=== PATIENT | female | born 1990 | race African-American/Black ===

== ENCOUNTER 2021-07-12 06:21 | Inpatient (IN) ==
[2021-07-12] MEDS ORDERED: MEPERIDINE 50 MG/1 ML VIAL IM PRN ×2 (07:48→08:00)
[2021-07-12] MEDS ORDERED: MEPERIDINE 25 MG/1 ML VIAL IM PRN (07:48)
[2021-07-12] MEDS ORDERED: ACETAMINOPHEN 325 MG TABLET PO PRN (07:48)
[2021-07-12] MEDS ORDERED: LACTATED RINGERS 250 ML IV ONE (07:48)
[2021-07-12 08:12] LABS: Basophils % 0.1 % (0.0-0.8); Eosinophils % 0.5 % (0.00-10.9); Hematocrit 36.9 VOL% (35.7-47.0); Hemoglobin 12.1 GM/DL (12.0-16.0); Immature Granulocytes % 0.6 %; Immature Granulocytes Absolute 0.05 #; Lymphocytes # 1.6 10*3/uL (1.4-4.0); Lymphocytes % 20.5 % (21.3-54.2); Mean Corpuscular HGB Conc 32.8 GM/DL (32-36); Mean Corpuscular Volume 83.3 FL (87-102); Mean Platelet Volume 8.3 FL (9.6-12.0); Neutrophils % 69.3 % (38.7-73.9); Platelet Count 388 T/CUMM (130-400); Red Blood Count 4.43 MC/CUMM (3.8-5.5); Red Cell Distribution Width 16.1 % (9.3-17.3); White Blood Count 7.9 T/CUMM (4-12)
[2021-07-12 08:35] LABS: Alanine Aminotransferase 17 U/L (13-56); Albumin 2.3 G/DL (3.4-5.0); Alkaline Phosphatase 103 U/L (45-117); Aspartate Amino Transferase 16 U/L (0-37); Bilirubin,Total < 0.39 MG/DL (0.20-1.00); Blood Urea Nitrogen 9 MG/DL (7-18); Carbon Dioxide 19 MMOL/L (21-32); Estimated Glom Filtration Rate 190 ML/MIN; Glucose 74 MG/DL (74-106); Osmolality,Calculated 270.8 MOS/KG (273-304); Potassium 3.8 MMOL/L (3.5-5.1); Sodium 137 MMOL/L (136-145); Total Protein 7.4 G/DL (6.4-8.2)
[2021-07-12] MEDS ORDERED: MEPERIDINE 50 MG/1 ML VIAL IV PRN (11:49)
[2021-07-12] MEDS: MEPERIDINE 50 MG/1 ML VIAL IV PRN ×3 (13:08→23:26)
[2021-07-12] MEDS: ONDANSETRON 4 MG/2 ML VIAL IV PRN ×2 (13:09→19:43)
[2021-07-12] MEDS: LACTATED RINGERS 1,000 ML IV SCH (13:11)
[2021-07-13] MEDS: ONDANSETRON 4 MG/2 ML VIAL IV PRN ×2 (01:04→09:59)
[2021-07-13] MEDS: LACTATED RINGERS 1,000 ML IV SCH (01:09)
[2021-07-13] MEDS ORDERED: diphenhydrAMINE 50 MG/1 ML VIAL IV PRN ×3 (02:19→09:48)
[2021-07-13] MEDS ORDERED: ePHEDrine 50 MG/ML VIAL IV PRN (02:19)
[2021-07-13] MEDS ORDERED: FAMOTIDINE 20 MG/2 ML VIAL IV ONE (02:19)
[2021-07-13] MEDS ORDERED: PROMETHAZINE 25 MG/1 ML VIAL IM ONE (02:19)
[2021-07-13] MEDS ORDERED: NALOXONE 0.4 MG/ML VIAL IV PRN (02:19)
[2021-07-13] MEDS ORDERED: LACTATED RINGERS 1,000 ML IV ONE (02:19)
[2021-07-13] MEDS ORDERED: hydrOXYzine HCL 25 MG/1 ML VIAL IM PRN ×2 (02:19→09:48)
[2021-07-13] MEDS ORDERED: CITRIC ACID/SODIUM CITRATE 30 ML UDCUP PO ONE (02:19)
[2021-07-13] MEDS ORDERED: fentaNYL 2 MCG/ROPIV 0.2% EPID 100 ML EPIDURAL SCH (02:30)
[2021-07-13] MEDS ORDERED: OXYTOCIN/LR 20 UNIT/1,000 ML BAG IV ONE ×2 (05:42→08:05)
[2021-07-13] MEDS ORDERED: METHYLERGONOVINE 0.2 MG/1 ML AMP ONE (05:42)
[2021-07-13] MEDS ORDERED: miSOPROStoL 200 MCG TABLET ONE (05:42)
[2021-07-13] MEDS ORDERED: TRANEXAMIC ACID 1,000 MG/10 ML VIAL ONE (05:42)
[2021-07-13] MEDS ORDERED: CARBOPROST TROMETHAMINE 250 MCG/ML AMP IM ONE (05:43)
[2021-07-13] MEDS ORDERED: LIDOCAINE MPF 2% /EPI 20 ML VIAL ONE (05:59)
[2021-07-13] MEDS ORDERED: ONDANSETRON 4 MG/2 ML VIAL ONE ×2 (06:07→06:27)
[2021-07-13] MEDS ORDERED: PHENYLEPHRINE 1 MG/10 ML SYRINGE IV ONE (06:27)
[2021-07-13 06:28] LABS: Cord Arterial Blood HCO3 14.7 MMOL/L
[2021-07-13 06:31] LABS: Cord Venous Blood HCO3 17.8 MMOL/L; Cord Venous Blood PCO2 55.3 MMHG; Cord Venous Blood PO2 22.7
[2021-07-13] MEDS ORDERED: ceFAZolin 3,000 MG in SYRINGE 1 EACH IV ONE (07:00)
[2021-07-13] MEDS ORDERED: ONDANSETRON 4 MG/2 ML VIAL IV PRN (09:48)
[2021-07-13] MEDS ORDERED: HYDROmorphone 2 MG/1 ML VIAL IV PRN (09:48)
[2021-07-13] MEDS: ACETAMINOPHEN 500 MG TABLET PO SCH ×3 (09:56→23:31)
[2021-07-13] MEDS: KETOROLAC 30 MG/1 ML VIAL IV SCH ×3 (09:58→22:15)
[2021-07-13] MEDS: ceFAZolin 2,000 MG/50 ML DUPLEX IV SCH ×2 (13:44→22:18)
[2021-07-14] MEDS: KETOROLAC 30 MG/1 ML VIAL IV SCH (04:14)
[2021-07-14] MEDS: ACETAMINOPHEN 500 MG TABLET PO SCH (04:20)
[2021-07-14] MEDS: oxyCODONE/ACETAMINOPHEN 5-325 MG TABLET PO PRN ×3 (04:20→19:50)
[2021-07-14 05:06] LABS: Basophils % 0.1 % (0.0-0.8); Eosinophils % 0.3 % (0.00-10.9); Hematocrit 34.2 VOL% (35.7-47.0); Hemoglobin 10.7 GM/DL (12.0-16.0); Immature Granulocytes % 0.4 %; Immature Granulocytes Absolute 0.04 #; Lymphocytes # 1.8 10*3/uL (1.4-4.0); Mean Corpuscular HGB Conc 31.3 GM/DL (32-36); Mean Corpuscular Volume 83.6 FL (87-102); Mean Platelet Volume 8.3 FL (9.6-12.0); Monocytes % 7.7 % (1.7-12.7); Neutrophils % 72.5 % (38.7-73.9); Platelet Count 340 T/CUMM (130-400); Red Blood Count 4.09 MC/CUMM (3.8-5.5); Red Cell Distribution Width 16.3 % (9.3-17.3); White Blood Count 9.6 T/CUMM (4-12)
[2021-07-14 05:55] LABS: HIV Antigen/Antibody Result Nonreactive (Nonreactive); Hepatitis B Surface Ag Quant < 0.10 Index; Hepatitis B Surface Ag Result Non-Reactive (NonReactive); Rubella Antibody IgG Result Reactive (NonReactive)
[2021-07-14] MEDS: DOCUSATE SODIUM 100 MG CAPSULE PO SCH ×2 (09:13→19:50)
[2021-07-14] MEDS: MAGNESIUM HYDROXIDE SUSP 30 ML UDCUP PO SCH ×2 (09:13→19:50)
[2021-07-14] MEDS: SIMETHICONE CHEW 80 MG TABLET PO PRN (19:50)
[2021-07-14] MEDS: IBUPROFEN 800 MG TABLET PO PRN (23:31)
[2021-07-15] MEDS: oxyCODONE/ACETAMINOPHEN 5-325 MG TABLET PO PRN ×4 (02:13→22:10)
[2021-07-15] MEDS: DOCUSATE SODIUM 100 MG CAPSULE PO SCH ×3 (03:41→22:10)
[2021-07-15] MEDS: MAGNESIUM HYDROXIDE SUSP 30 ML UDCUP PO SCH ×3 (03:41→22:10)
[2021-07-15] MEDS: IBUPROFEN 800 MG TABLET PO PRN ×2 (14:15→22:10)
[2021-07-15] MEDS ORDERED: MAGNESIUM CITRATE 300 ML BOTTLE PO ONE (22:09)
[2021-07-15] MEDS: SIMETHICONE CHEW 80 MG TABLET PO PRN (22:10)
[2021-07-16] MEDS: IBUPROFEN 800 MG TABLET PO PRN ×2 (06:34→15:00)
[2021-07-16] MEDS: oxyCODONE/ACETAMINOPHEN 5-325 MG TABLET PO PRN ×2 (06:34→15:00)
[2021-07-16] MEDS: DOCUSATE SODIUM 100 MG CAPSULE PO SCH (09:28)
[2021-07-16] MEDS: MAGNESIUM HYDROXIDE SUSP 30 ML UDCUP PO SCH (09:28)
[2021-07-16 12:17] VITALS: BP 142/80
== END 2021-07-16 16:45 | disposition home or self-care (01) | DRG 540 ==
LOC: N.LD 06:21 → N.OB 07-13 10:31
PROVIDERS: ADMIT Obstetrics & Gynecology; ATTEND Obstetrics & Gynecology
PROC: LDCSECT (ICD-10-PCS; 2021-07-13 06:01)